=== PATIENT | female | born 1960 | race Asian ===

== ENCOUNTER 2021-05-04 06:37 | Day surgery (SDC) | payer MEDICAID, SELFPAY ==
[~2021-05-04] VITALS: Ht 157.5 cm; Wt 49.9 kg
[2021-05-04] MEDS ORDERED: fentaNYL CITRATE/PF 100 MCG/2 ML AMP ONE (07:59)
[2021-05-04] MEDS ORDERED: MIDAZOLAM HCL 5 MG/5 ML VIAL ONE ×2 (07:59→08:27)
[2021-05-04 12:13] VITALS: BP_SYST 109
== END 2021-05-04 09:40 | disposition home or self-care (01) ==
LOC: SDS 06:37 → SMU 06:40 → SDS 09:40
PROVIDERS: ATTEND Internal Medicine Gastroenterology
DX: Z12.11 Encounter for screening for malignant neoplasm of colon (principal); K29.50 Unspecified chronic gastritis without bleeding; K52.9 Noninfective gastroenteritis and colitis, unspecified; K62.1 Rectal polyp; K63.5 Polyp of colon; K64.9 Unspecified hemorrhoids; Z98.0 Intestinal bypass and anastomosis status; Z85.038 Personal history of other malignant neoplasm of large intestine; Z79.899 Other long term (current) drug therapy; Z20.822 Contact with and (suspected) exposure to COVID-19
CPT/HCPCS: 36415; 43239; 45385; 87426; 88305; 88312; 88313; 99152; 99153; G0378; J2250; J3010; U0003